=== PATIENT | female | born 1940 | race Caucasian/White ===

== ENCOUNTER 2019-03-12 06:35 | Day surgery (SDC) | payer MEDICARE, SELFPAY ==
--- NOTE | 2019-03-12 07:14 | PM.PREOP ---
Pre-operative Note Interval Note History & Physical reviewed/Exam performed by Physician: Yes Changes to H&P: No
[2019-03-12 07:15] VITALS: BP 126/80; PULSE 85; RESP 15; TEMP 36.8; O2SAT 99; BMI 19.2
[2019-03-12] MEDS: PROPARACAINE 0.5% OPHTH SOL 2 DROPS EYE-OP (07:15)
[2019-03-12] MEDS: CATARACT EYE COMPOUND (10 DROPS/SYRINGE) 3 DROPS EYE-OP (07:20)
[2019-03-12] MEDS: PHENYLEPHRINE/LIDOCAINE VIAL (OR) 0.2 ML EYE-OP (08:01)
[2019-03-12] MEDS: BALANCED SALT IRRIG SOLN NO.2 500 ML, EPINEPHrine 1 MG IRR (08:02)
[2019-03-12] MEDS: LIDOCAINE 2% INJ SDV 2 ML INJ (08:02)
[2019-03-12] MEDS: CHONDROIDTIN/SOD HYALURONATE 1.05 ML SYRINGE INTRAOCULA (08:06)
[2019-03-12] MEDS: TETRACAINE 0.5% OPHTH DROPS 4 ML 2 DROPS EYE-OP (08:06)
[2019-03-12] MEDS: BALANCED SALT IRRIG SOLN NO.2 15 ML IRR (08:07)
[2019-03-12] MEDS: MOXIFLOXACIN/PF 5 MG/ML VIAL EYE-OP (08:09)
--- NOTE | 2019-03-12 08:27 | P.OP_ITS ---
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 The correct patient, surgical site and lens were confirmed. 0.5 % tetracaine drops were placed in the right eye. The patient was prepped and draped in the typical sterile manner. A lid speculum was placed in the eye. 2% lidocaine was placed on the eye. A paracentesis port was created with a side-port blade. 0.1 mL of 1% preservative free lidocaine with phenylephrine was injected into the anterior chamber. Viscoelastic was injected into the anterior chamber. A 2.6mm keratome was used to create a clear corneal temporal incision. Cystotome and Utrata for ceps were used to create a continuous curvilinear capsulorrhexis. Balanced salt solution was used to hydrodissect the nucleus. Phacoemulsification was used to remove the lens. The capsular bag was inflated with viscoelastic. A Suazo [id number] +23.0D lens was inserted into the capsule. Viscoelastic was removed and the wound hydrated. The wound was found to be leak free and the eye was assessed to be at normal physiologic pressure. 0.1mL Vigamox was injected into the anterior chamber. The lid speculum was removed and the patient left the operating room in excellent condition. Complications: none Condition: stable Disposition: same day surgery
[2019-03-12 08:30] VITALS: BP 113/75; PULSE 73; RESP 16; TEMP 36.5; O2SAT 96
== END 2019-03-12 08:39 | disposition home or self-care (01) ==
PROVIDERS: Visit Provider Ophthalmology
PROC: (CPT 66984; principal; 2019-03-12 07:45)
DX: H25.811 Combined forms of age-related cataract, right eye (principal)
CPT/HCPCS: 66984; J0171; J2250; J3010

== ENCOUNTER 2019-04-09 06:29 | Day surgery (SDC) | payer MEDICARE, SELFPAY ==
[2019-04-09] MEDS: PROPARACAINE 0.5% OPHTH SOL 2 DROPS EYE-OP (07:16)
[2019-04-09] MEDS: CATARACT EYE COMPOUND (10 DROPS/SYRINGE) 3 DROPS EYE-OP (07:16)
[2019-04-09 07:20] VITALS: BP 125/80; PULSE 86; RESP 16; TEMP 36.6; O2SAT 100; BMI 19.1
--- NOTE | 2019-04-09 07:33 | PM.PREOP ---
Pre-operative Note Interval Note History & Physical reviewed/Exam performed by Physician: Yes Changes to H&P: No
[2019-04-09] MEDS: LIDOCAINE 2% INJ SDV 2 ML INJ (07:58)
[2019-04-09] MEDS: BALANCED SALT IRRIG SOLN NO.2 500 ML, EPINEPHrine 1 MG IRR (07:59)
[2019-04-09] MEDS: PHENYLEPHRINE/LIDOCAINE VIAL (OR) 0.2 ML EYE-OP (08:00)
[2019-04-09] MEDS: MOXIFLOXACIN INJ 5 MG/ML VIAL EYE-OP (08:00)
[2019-04-09] MEDS: TETRACAINE 0.5% OPHTH DROPS 4 ML 2 DROPS EYE-OP (08:02)
[2019-04-09] MEDS: CHONDROIDTIN/SOD HYALURONATE 1.05 ML SYRINGE INTRAOCULA (08:03)
[2019-04-09] MEDS: BALANCED SALT IRRIG SOLN NO.2 15 ML 5 ML IRR (08:03)
--- NOTE | 2019-04-09 08:29 | PM.OP.1 ---
Procedure & Clinicians Procedure: cataract extraction with intraocular lens implant left Same procedure as scheduled: Yes Indications: combined forms age related cataract, left Surgeon: Elbert Barragan Click Yes if Unassisted: Yes Anesthesia Type: MAC +/- Operative Notes Procedure in detail: The patient was brought to the operating suite. The correct patient, surgical site and lens were confirmed. 0.5 % tetracaine drops were placed in the left eye and the eye was marked with a corneal reference marker. The patient was prepped and draped in the typical sterile manner. A lid speculum was placed in the eye. 2% lidocaine was placed on the eye. A paracentesis port was created with a side-port blade. 0.1 mL of 1% preservative free lidocaine with phenylephrine was injected into the anterior chamber. Viscoelastic was injected into the anterior chamber. A 2.6mm keratome was used to create a clear corneal temporal incision. Cystotome and Utrata forceps were used to create a continuous curvilinear capsulorrhexis. Balanced salt solution was used to hydrodissect the nucleus. Phacoemulsification was used to remove the lens. The capsular bag was inflated with viscoelastic and the cornea was marked at 90 degrees. A Suazo [id number] +22.0D lens was inserted into the capsule and rotated to 90 degrees. Viscoelastic was removed and the wound hydrated. The wound was found to be leak free and the eye was assessed to be at normal physiologic pressure. The lens alignment was confirmed at 90 degrees. The lid speculum was removed, vigamox drops were placed on the eye and an eye shield was placed. The patient left the operating room in excellent condition. Complications: none Post-operative Condition: stable Disposition: same day surgery
[2019-04-09 08:35] VITALS: BP 127/69; PULSE 70; RESP 15; TEMP 36.4; O2SAT 96
[2019-04-09 09:05] VITALS: BP 118/71; PULSE 69; RESP 15; TEMP 36.7; O2SAT 98
== END 2019-04-09 09:15 | disposition home or self-care (01) ==
LOC: OR 06:31
PROVIDERS: Visit Provider Ophthalmology
PROC: (CPT 66984; principal; 2019-04-09 07:45)
DX: H25.812 Combined forms of age-related cataract, left eye (principal)
CPT/HCPCS: 66984; J0171; J2250; J3010; V2787

== ENCOUNTER → 2020-08-16 13:33 | Outpatient (CLI) | payer MEDICARE, SELFPAY ==
[2020-08-16] MEDS: COVID-19 VACC #1, MRNA(MOD) 100 MCG/0.5 ML VIAL IM (13:36)
== END ==
PROVIDERS: Visit Provider Internal Medicine
DX: Z23 Encounter for immunization (principal)
CPT/HCPCS: 0011A; 91301

== ENCOUNTER → 2020-09-13 13:22 | Outpatient (CLI) | payer MEDICARE, SELFPAY ==
[2020-09-13] MEDS: COVID-19 VACC #2, MRNA(MOD) 100 MCG/0.5 ML VIAL IM (13:32)
== END ==
PROVIDERS: Visit Provider Internal Medicine
DX: Z23 Encounter for immunization (principal)
CPT/HCPCS: 0012A; 91301

== ENCOUNTER 2024-08-11 12:14 | Emergency (ER) | payer MEDICARE, SELFPAY ==
[2024-08-11 12:19] VITALS: BP 157/74; PULSE 80; RESP 16; TEMP 36.4; O2SAT 98; BMI 21.2
[2024-08-11] MEDS: CARBAMIDE PEROXIDE OTIC 15 ML 4 DROPS EAR-RIGHT (14:28)
--- NOTE | 2024-08-11 15:33 | PC.NURSE ---
Addendum entered by Shelly Gross R.N. 08/11/24 15:35: Provider to manually remove ear wax. Pt states that she can now hear out of her right ear. Original Note: Irrigated ear without resul. pt tolerated well. Provider aware.
[2024-08-11 15:34] VITALS: BP 154/74; PULSE 79; RESP 20; TEMP 37; O2SAT 100
--- NOTE | 2024-08-11 15:35 | ED_ITS ---
HPI - Ear Problem <Keanu Darling PA-C - Last Filed: 08/11/24 15:41> General Chief complaint: Ear Stated complaint: dizziness, ear px Time Seen by Provider: 08/11/24 12:54 Source: patient Mode of arrival: Ambulatory History of Present Illness HPI Narrative: 84-year-old female presents to the ED with right-sided ear fullness, diminished hearing and dizziness for 3 days. Patient also recently recover from a URI. Travis sandra states that she does not have ear pain, however it does feel full, her hearing is diminished in that ear. She also endorses some dizziness when she moves positions. No fever, chills, chest pain, shortness of breath, nausea, vomiting, lightheadedness, dizziness, syncope. Related Data Previous Rx's Medication Instructions Recorded ciprofloxacin 0.3 %-dexamethasone 4 drp EAR-RIGHT BID 7 days #7.5 mL 08/11/24 0.1 % ear drops,suspension Allergies Allergy/AdvReac Type Severity Reaction Status Date / Time No Known Drug Allergies Allergy Verified 03/12/19 07:14 Review of Systems <Keanu Darling PA-C - Last Filed: 08/11/24 15:41> Constitutional Constitutional: Denies chills, Denies fatigue, Denies fever(s), Denies frequent falls, Denies lethargy and Denies weakness Eyes Eyes: Denies change in vision, Denies eye discharge, Denies irritation and Denies loss of vision ENT Ears, Nose, Mouth, and Throat: Denies change in voice, Reports dizziness, Denies neck pain, Denies sore throat and Denies throat swelling Comments: Right ear fullness, diminished hearing Cardiovascular Cardiovascular: Denies chest pain, Denies irregular heart rhythm, Denies lightheadedness, Denies palpitations, Denies dyspnea, Denies dyspnea on exertion and Denies orthopnea Respiratory Respiratory: Denies cough, Denies dyspnea, Denies dyspnea on exertion and Denies wheezing Gastrointestinal Gastrointestinal: Denies abdominal pain, Denies change in bowel habits, Denies diarrhea, Denies nausea and Denies vomiting Musculoskeletal Musculoskeletal: Denies neck pain and Denies numbness Integumentary/Breasts Skin/Breast: Denies pruritus, Denies erythema, Denies rash and Denies wounds Neurologic Neurologic: Denies behavioral changes, Denies confusion, Reports dizziness, Denies frequent falls, Denies loss of vision, Denies numbness and Denies weakness Psychiatric Psychiatric: Denies anxiety, Denies behavioral changes, Denies confusion, Denies depression, Denies homicidal ideation and Denies suicidal ideation Endocrine Endocrine: Denies fatigue, Denies flushing and Denies palpitations Hematologic/Lymphatic Hematologic/Lymphatic: Denies easy bruising Allergic/Immunologic Allergic/Immunologic: Denies urticaria, Denies throat swelling and Denies wheezing Patient History <Keanu Darling PA-C - Last Filed: 08/11/24 15:41> Social History household members: none Smoking Status: Never smoker Smoking Status: Never smoker Exam <Keanu Darling PA-C - Last Filed: 08/11/24 15:41> Narrative Exam Narrative: Const General:?cooperative, healthy appearing and comfortable [facility] Head:?normal to inspection Ears:?hearing grossly normal bilaterally; complete cerumen impaction in the right ear, unable to visualize tympanum. Left tympanum visualized and is normal. Nose:?external nose normal Face and sinus:?normal facial exam and sinuses nontender Mouth:?oral mucosae normal Throat:?posterior oropharynx normal Eyes General:?appearance normal, both eyes and all related structures Neck Neck:?normal visual inspection and no lymphadenopathy noted Resp Effort & Inspection:?normal respiratory effort Auscultation:?clear to auscultation bilaterally Cardio Rate:?regular rate Rhythm:?regular rhythm Neuro General:?patient alert, patient awake and patient oriented x3 Initial Vital Signs Initial Vital Signs: Vital Signs Temperature 97.5 F L 08/11/24 12:19 Pulse Rate 80 08/11/24 12:19 Respiratory Rate 16 08/11/24 12:19 Blood Pressure 157/74 H 08/11/24 12:19 Pulse Oximetry 98 08/11/24 12:19 Oxygen Delivery Method Room Air 08/11/24 12:19 <Adi Ennis MD - Last Filed: 08/12/24 07:30> Initial Vital Signs Initial Vital Signs: Vital Signs Temperature 97.5 F L 08/11/24 12:19 Pulse Rate 80 08/11/24 12:19 Respiratory Rate 16 08/11/24 12:19 Blood Pressure 157/74 H 08/11/24 12:19 Pulse Oximetry 98 08/11/24 12:19 Oxygen Delivery Method Room Air 08/11/24 12:19 Course <Keanu Darling PA-C - Last Filed: 08/11/24 15:41> Orders Ordered: Discontinued Medications Carbamide Peroxide (Carbamide Peroxide Otic 15 Ml) 4 drops EAR-RIGHT NOW ONE Stop: 08/11/24 14:21 Last Admin: 08/11/24 14:28 Dose: 4 drops Documented By: MPO Vital Signs Vital signs: Vital Signs - 8 hr 08/11/24 12:19 08/11/24 15:34 Temperature 97.5 F L 98.6 F Pulse Rate 80 79 Respiratory Rate 16 20 Blood Pressure 157/74 H 154/74 H Pulse Oximetry 98 100 Oxygen Delivery Method Room Air Room Air <Adi Ennis MD - Last Filed: 08/12/24 07:30> Orders Ordered: Discontinued Medications Carbamide Peroxide (Carbamide Peroxide Otic 15 Ml) 4 drops EAR-RIGHT NOW ONE Stop: 08/11/24 14:21 Last Admin: 08/11/24 14:28 Dose: 4 drops Documented By: MPO Vital Signs Vital signs: Vital Signs - 8 hr 08/11/24 12:19 08/11/24 15:34 Temperature 97.5 F L 98.6 F Pulse Rate 80 79 Respiratory Rate 16 20 Blood Pressure 157/74 H 154/74 H Pulse Oximetry 98 100 Oxygen Delivery Method Room Air Room Air Medical Decision Making <Keanu Darling PA-C - Last Filed: 08/11/24 15:41> MDM Narrative Medical decision making narrative: 84-year-old female presents to the ED with right-sided ear fullness, diminished hearing and dizziness for 3 days. Concern for eustachian tube dysfunction versus otitis media versus cerumen impaction versus BPPV versus other. Physical exam was consistent with cerumen impaction, ear lavage was performed. Patient's hearing significantly improved after the wax was disimpacted. There is still some remaining wax, for which patient is being sent home with a Debrox to use nightly to soften up the wax. Patient also being prescribed antibiotic eardrops since the ear canal appears somewhat erythematous. Recommend follow-up with PCP as soon as possible. ED return precautions discussed with patient. Patient verbalized understanding. Medical records reviewed: Yes Discharge Plan Departure Patient Disposition: Home Clinical Impression: Otitis externa Qualifiers: Otitis externa type: unspecified type Chronicity: acute Laterality: right Qualified Code(s): H60.501 - Unspecified acute noninfective otitis externa, right ear Instructions: How to Instill Ear Drops, Cerumen Impaction Activity Restrictions/Additional Instructions: You were evaluated in the emergency department for right-sided ear fullness and dizziness. Your right ear was blocked with the ear wax, which was washed out. It appears that your hearing improved with this procedure. You are being prescribed antibiotic eardrops for proper healing. You may also continue using the Debrox eardrops in the right ear once before bedtime daily for the next several days to loosen up any remaining wax. Please follow-up with your primary care doctor as soon as possible. Return to the ED if you have worsening symptoms. Prescriptions: New ciprofloxacin-dexamethasone 0.3-0.1 % drops,suspension 4 drp EAR-RIGHT BID 7 Days Qty: 7.5 0RF Referrals: Miscellaneous,[facility] [Primary Care Provider] - Stand Alone Forms: Patient Portal/API/Survey ED Sign-out <Adi Ennis MD - Last Filed: 08/12/24 07:30> Cosign ED Attending Cosamandeepature Attestation: I was immediately available in the department for consultation. ?This documentation has been reviewed and I agree with assessment and plan. Supervised by Adi Ennis MD
== END 2024-08-11 15:41 | disposition home or self-care (01) ==
PROVIDERS: Emergency Provider Student in an Organized Health Care Education/Training Program
DX: H60.501 Unspecified acute noninfective otitis externa, right ear (principal); R42 Dizziness and giddiness
CPT/HCPCS: 99282